=== PATIENT | female | born 1985 | race African-American/Black ===

== ENCOUNTER 2025-04-30 20:12 | Emergency (ER) | payer OTHER, SELFPAY ==
[2025-04-30 20:19] VITALS: BP 125/70; PULSE 89; TEMP 36.8; O2SAT 100; BMI 28.5
--- NOTE | 2025-04-30 20:29 | ED_ITS ---
HPI - URI/Sore Throat General Chief Complaint: Upper Respiratory Infection Stated Complaint: COUGH,SORE THROAT Time Seen by Provider: 04/30/25 20:21 Source: patient History of Present Illness HPI Narrative: presents complaining of cough for the past month. worse at night. No fever or chest pain or nausea. Describes coughing jags. States she was diagnosed with sarcoid last year. States biopsy was performed in [facility]. No follow up as she moved to this area. Does not have a PCP here Related Data Allergies Allergy/AdvReac Type Severity Reaction Status Date / Time Penicillins Allergy Mild Hives Verified 04/30/25 20:19 Review of Systems ROS Status of ROS 10 or more systems reviewed and unremark able except as noted in history and below PFSH PFSH Social History Little interest or pleasure in doing things: not at all Feeling down, depressed, or hopeless: not at all Exam Constitutional Vital Signs, click to edit/add: Last Vital Signs Temp 98.2 F 04/30/25 20:19 Pulse 87 05/01/25 04:11 Resp 18 05/01/25 04:11 BP 122/74 05/01/25 04:11 Pulse Ox 97 05/01/25 04:11 O2 Del Method Room Air 05/01/25 04:11 Common normals: no apparent distress, average body habitus, oriented x3, no limitations, healthy appearing, alert and well nourished [facility] Common normals: normocephalic and head/scalp atraumatic Eye Common normals: EOMs intact bilaterally and conjunctivae normal Respiratory Common normals: normal respiratory effort Effort & inspection: actively coughing and audible wheezes Auscultation: rhonchi Cardio Common normals: regular rate, regular rhythm, S1 normal heart sound and S2 normal heart sound GI Common normals: Normal to inspection, nondistended, normoactive bowel sounds present, soft to palpation and non-tender Extremity Common normals: normal to inspection and full ROM Neuro Common normals: oriented x3, CN's II-XII intact bilaterally and moves all extremities Psych Appearance: grossly normal Course Vital Signs Vital signs: Vital Signs Temperature 98.2 F 04/30/25 20:19 Pulse Rate 89 04/30/25 20:19 Respiratory Rate 16 04/30/25 20:19 Blood Pressure 125/70 04/30/25 20:19 Pulse Oximetry 100 04/30/25 20:19 Oxygen Delivery Method Room Air 04/30/25 20:19 Temperature 98.2 F 04/30/25 20:19 Pulse Rate 87 05/01/25 04:11 Respiratory Rate 18 05/01/25 04:11 Blood Pressure 122/74 05/01/25 04:11 Pulse Oximetry 97 05/01/25 04:11 Oxygen Delivery Method Room Air 05/01/25 04:11 MDM - URI/Sore Throat MDM Narrative Medical decision making narrative: patient presents complaining of recurrent cough. cough worse at night . Exam with diffuse mild rhonchi and few scattered wheezes. Treated with solumedrol and duoneb and improved nicely. cxray with findings concerning for CA. CT chest with pulmonary nodules concerning for CA. These nodules may or may not be related to her sarcoid. She is advised of the importance of follow up with PCP who can obtain her old records and continue this workup Discharged home with prednisone and albuterol inhaler Lab Data Labs: Lab Results 04/30/25 Range/Units 20:47 WBC 6.2 (4.0-11.0) 10^3/uL RBC 4.67 (4.20-5.40) 10^6/uL Hgb 13.9 (12.0-16.0) g/dL Hct 40.3 (36.0-48.0) % MCV 86.3 (81.0-99.0) fL MCH 29.8 (26.7-34.0) pg MCHC 34.5 (29.9-35.2) g/dL RDW 15.0 (11.0-15.0) % Plt Count 321 (150-450) 10^3/uL MPV 9.4 L (9.5-13.5) fL Neut % (Auto) 55.2 (43.0-75.0) % Lymph % (Auto) 26.5 (20.5-60.0) % Williams % (Auto) 13.3 H (1.7-12.0) % Eos % (Auto) 3.9 (0.9-7.0) % Baso % (Auto) 0.6 (0.2-2.0) % Neut # (Auto) 3.4 (1.4-6.5) 10^3/uL Lymph # (Auto) 1.7 (1.2-3.8) 10^3/uL Williams # (Auto) 0.8 (0.3-0.8) 10^3/uL Eos # (Auto) 0.2 (0.0-0.7) 10^3/uL Baso # (Auto) 0.0 (0.0-0.1) 10^3/uL Abs Immat Gran (auto) 0.03 (0.00-0.03) 10^3/uL Imm/Tot Granulo (auto) 0.5 (0.0-0.5) % Sodium 142 (136-145) mmol/L Potassium 4.0 (3.5-5.1) mmol/L Chloride 104 (98-107) mmol/L Carbon Dioxide 29.9 (21.0-32.0) mmol/L Anion Gap 12.1 BUN 15.0 (7.0-18.0) mg/dL Creatinine 1.04 H (0.55-1.02) mg/dL Est GFR ( Amer) >60 (>=60 mL/min/1.73m^2) Est GFR (Non-Af Amer) 58 L (>=60 mL/min/1.73m^2) BUN/Creatinine Ratio 14.4 Glucose 86 (74-106) mg/dL Calcium 9.3 (8.5-10.1) mg/dL NT-Pro-B Natriuret Pep 66.0 (<=450.0) pg/mL Discharge Plan Discharge Chief Complaint: Upper Respiratory Infection Clinical Impression: Acute bronchospasm, Pulmonary nodule 1 cm or greater in diameter Patient Disposition: Home, Self-Care Print Language: Qatari Instructions: Bronchospasm (ED), Pulmonary Nodules (ED) Additional Instructions: follow up with Dr Bella this week Referrals: Physician,Non-Staff, [Primary Care Provider] - 1 week Discharge Date/Time: 05/01/25 04:29
--- NOTE | 2025-04-30 20:31 | XR_ITS ---
[facility] [id number] Patient Name: THUY TERRAZAS MRN: [id number] date: 1985 Sex: F Assigned Patient Location: ED.MAIN Current Patient Location: ED.MAIN Accession/Order Number: [id number] Exam Date: 04/30/2025 20:56 Report Date: 04/30/2025 21:00 At the request of: DOMINGA FRYE MD Procedure: XR chest 2V Plain film chest 2 view HISTORY: Cough and sore throat. One month duration. Current smoker. COMPARISON: None FINDINGS: SUPPORT DEVICES: None POSTSURGICAL CHANGES: None HEART: Within normal limits PULMONARY SHARONA: Within normal limits MEDIASTINUM: Unremarkable LUNGS AND PLEURA: 17 mm nodular consolidation in the left suprahilar region. 2.2 cm nodular consolidation in the right suprahilar region. BONY STRUCTURES: Intact ADDITIONAL FINDINGS None XR/XR chest 2V IMPRESSION: Regions of nodular consolidation in the suprahilar regions. This may represent infectious or inflammatory etiology. There is major concern for malignant neoplasm. Continued follow-up assessment to ensure resolution recommended. May consider CT of the chest with contrast. Impression dictated by: Dhruv Cabrera M.D. 04/30/2025 9:00 PM Dictation Location: [facility] Electronically authenticated by: [id number] Y Date: 04/30/2025 21:00
--- OUTSIDE RECORDS SUMMARY | 2025-04-30 20:32 | XMS_ITS | Clinical Summary ---
Author Organization [facility] Address [address] [place] [address] Care Team Providers Care Patient Day Coordinator Name Role Phone Eveline Ellsworth [facility] Primary Care Provi reagan Allergies Active Allergy Reactions Criticality Noted Date Comments Banana Anaphylaxis,Hives High 05/04/2022 Clindamycin Hives 04/06/2016 Grape Anaphylaxis,Hives High 05/04/2022 [place] (Prunus Persica) Anaphylaxis,Hives High 2021 Peanut Oil Anaphylaxis,Hives High 05/04/2022 Penicillins Hives 08/18/2010 Deb Oil Anaphylaxis,Hives High 05/04/2022 [place] Anaphylaxis,Hives High 05/04/2022 Medications EPINEPHrine (EPIPEN) 0.3 mg/0.3 mL AtIn 2 Active fluticasone, FLOVENT DISKUS, (Flovent Diskus) 100 mcg/actuation DsDv Inhale 1 (one) puff 2 (two) times a day . 28 each 1 3 Active Additional Information Patient not taking.Reported on 06/01/2024 omeprazole (PRILOSEC) 40 MG capsule Take 1 (one) capsule (40 mg total) by mouth daily for 14 days . 14 capsule 3 Active Additional Information Patient not taking.Reported on 06/01/2024 famotidine (PEPCID) 20 MG tablet Take 1 (one) tablet (20 mg total) by mouth 2 (two) times a day . 60 tablet 2 3 Active Additional Information Patient not taking.Reported on 06/01/2024 montelukast (SINGULAIR) 10 mg tablet Take 1 (one) tablet (10 mg total) by mouth nightly . 30 tablet 11 3 Active Additional Information Patient taking differently:10 mg OralNightly PRN, Indications: maintenance therapy for asthma, Reported on 05/05/2024 albuterol 90 mcg/actuation inhaler Inhale 2 (two) puffs every 4 (four) hours as needed . 6.7 g 2 3 Active Additional Information Patient taking differently:2 puff Inhalation Every 4 hours PRN,Indications: acute asthma attack, Reported on 05/05/2024 acetaminophen (TYLENOL) 500 MG tabletIndicatio ns:Pain Take 1 (one) tablet (500 mg total) by mouth every 6 (six) hours as needed . 30 tablet 3 4 Active predniSONE (DELTASONE) 10 MG tabletIndicatio ns:Sarcoid Take 4 (four) tablets (40 mg total) by mouth daily Take with food, in the morning. Follow dosing instructions from Dr. Watt. . 120 tablet 4 4 Active sulfamethoxazol e-trimethoprim (BACTRIM DS,SEPTRA DS) 800-160 mg per tabletIndicatio ns:Sarcoid 1 tab orally every Wednesday, Wednesday, Wednesday . 15 tablet 4 4 Active Active Problems Problem Noted Date Diagnosed Date Cavitary lung disease 05/03/2024 Mediastinal lymphadenopathy 05/03/2024 Lung nodules 05/03/2024 Asthma 07/16/2022 Multiple food allergies 07/16/2022 Family History Medical History Relation Comments Diabetes Father Hyperlipidemia Father Breast cancer Maternal Grandmother Diabetes Mother Diabetes Paternal Grandfather Relation Status Comments Father Maternal Grandmother Mother Paternal Grandfather Social History Tobacco Use Types Packs/Day Years Used Date Smoking Tobacco: Every Day Cigarettes 1.5 23.4 Started: 2001 Cigars Passive Smoke Exposure: Current Smokeless Tobacco: Never Tobacco Cessation:Ready to Q uit: No; Counseling Given: Yes Comments:She has smoked since age 16 years old. She has smoked 1.5 ppd. She is still smoking but is trying to cut down/ quit Alcohol Use Standard Drinks/Week Comments Yes 0 (1 standard drink = 0.6 oz pur e alcohol) 1 drink each week Humiliation, Afraid, Rape, and Kick questionnair e Answer Date Recorded Within the last year, have y ou been afraid of your partner or ex-partner? No 07/09/2022 Within the last year, have y ou been humiliated or emotionally abused in other ways by your partner or ex-partner? No Within the last year, have y ou been kicked, hit, slapped, or otherwise physically hurt by your partner or ex-partner? No 07/09/2022 Within the last year, have y ou been raped or forced to have any kind of sexual activity by your partner or ex-partner? No 07/09/2022 Social Connection and Isolat ion Panel [NHANES] Answer Date Recorded In a typical week, how many times do you talk on the phone with family, friends, or neighbors? More than three times a week 07/09/2022 How often do you get togethe r with friends or relatives? More than three times a week 07/09/2022 How often do you attend chur or faith services? 1 to 4 times per year 07/09/2022 Do you belong to any clubs o r organizations such as yazidi groups, unions, fraternal or athletic groups, or school groups? No 07/09/2022 How often do you attend meet ings of the clubs or organizations you belong to? Never 07/09/2022 Are you , , di vorced, , never , or living with a partner? Never 07/09/2022 AUDIT-C Answer Date Recorded Q1: How often do you have a drink containing alc ohol? 2-4 times a month 07/09/2022 Q2: How many drinks containi ng alcohol do you have on a typical day when you are drinking? 1 or 2 07/09/2022 Q3: How often do you have si x or more drinks on one occasion? Never 07/09/2022 Overall Financial Resource Strain (CARDIA) Answe r Date Recorded How hard is it for you to pa y for the very basics like food, housing, medical care, and heating? Somewhat hard 07/16/2022 PHQ-2 Answer Date Recorded PHQ-9 Total Score 3 07/16/2022 [facility] [place] [facility] Occupat ional Health - Occupational Stress Questionnaire Answer Date Recorded Do you feel stress - tense, restless, nervous, or anxious, or unable to sleep at night because your mind is troubled all the time - these days? Only a little 07/09/2022 Exercise Vital Sign Answer Date Recorde d On average, how many days pe r week do you engage in moderate to strenuous exercise (like a brisk walk)? 0 days 07/09/2022 On average, how many minutes do you engage in exercise at this level? 0 min 07/09/2022 Hunger Vital Sign Answer Date Recorded Within the past 12 months, y ou worried that your food would run out before you got the money to buy more. Never true 07/16/20 22 Within the past 12 months, t he food you bought just didn't last and you didn't have money to get more. Never true 07/16/2022 PRAPARE - Transportation Answer Date Re corded In the past 12 months, has l ack of transportation kept you from medical appointments or from getting medications? No 06/23 In the past 12 months, has l ack of transportation kept you from meetings, work, or from getting things needed for daily living? No 07/16/2022 Housing Stability Vital Sign Answer Alonso e Recorded In the last 12 months, was t here a time when you were not able to pay the mortgage or rent on time? Yes 07/09/2022 In the last 12 months, how many places have you lived? 1 07/09/2022 In the last 12 months, was t here a time when you did not have a steady place to sleep or slept in a group home (including now)? No 07/09/2022 Comments Unknown Sex and Gender Information Value Date Recorded Sex Assigned at Not on file Legal Sex Female 12:34 PM EDT Gender Identity Female 06/08/2022 2:10 PM EDT Sexual Orientation Straight 07/16/2022 10 :30 AM EDT Sexual Orientation Bisexual 07/16/2022 10 :30 AM EDT Last Filed Vital Signs Vital Sign Reading Time Taken Comments Blood Pressure 116/73 06/01/2024 3:14 PM EDT Pulse 81 06/01/2024 3:14 PM EDT Temperature 36.7 C (98 F) 06/01/2024 3:14 PM EDT Respiratory Rate 16 06/01/2024 3:14 PM EDT Oxygen Saturation 96% 06/01/2024 3:14 PM EDT RA Inhaled Oxygen Concentration - - Weight 68 kg (150 lb) 06/01/2024 3:14 PM EDT Height 162.6 cm (5' 4 ) 06/01/2024 3:14 PM EDT Body Mass Index 25.75 06/01/2024 3:14 PM EDT Plan of Treatment Health Maintenance Due Date Last Done Comments Hepatitis C Screening 2001 Pneumococcal Vaccine: Ped or At-Risk (1 of 2 - PCV) 2002 HPV/Cotest 2013 Depression Screening/Follow- Up (PHQ-2/9) 07/16/2023 07/16/2022 Wellness Visit 08/25/2023 08/25/2022 Mammogram 2023 09/09/2022, 08/22, 08/31/2022 COVID-19 Vaccine ( season) 2024 Influenza Vaccine (Season Ended) 2025 Cervical Cancer Screening 08/25/2025 Pap Smear 08/25/2025 08/25/2022, 11/26/2010 Tetanus: Every 10yrs 09/19/2031 09/19/2021 HIV Screening Completed 08/13/2023, 05/01/2023 Procedures Procedure Name Priority Date/Time Associated Diagnosis Comments MM DIAGNOSTIC PETER BILATERAL Routine 09/09/2022 1:23 PM EDT Abnormal mammography THINPREP PAP SMEAR Routine 08/25/2022 10 :41 AM EDT Malignant neoplasm of cervix, unspecified site (HCC) from Last 3 Months or Most Recently Relevant to Health Maintenance Results * Mammography Diagnostic Peter Bilateral (09/09/2022 1:23 PM EDT) Anatomical Region Laterality Modality Breast Bilateral Mammography 09/09/2022 1:30 PM EDT Impressions 09/09/2022 2:14 PM EDT 1. Persistent mammographic focal asymmetries in each breast likely corresponding to a 1.1 cm mass on the right at 11 o'clock 4 cm from the nipple and a 1.1 cm mass on the left at 11 o'clock 7 cm from the nipple. Additional masses of similar appearance are present in each breast, and all are likely fibroadenomas. Recommend short-term follow-up with targeted sonography in 6 months. 2. Incidental 0.5 cm simple cyst in the left breast at 12 o'clock as above. No dedicated follow-up is recommended. BIRADS: BIRADS - CATEGORY 3 Findings are probably benign. A short interval follow-up is recommended in 6 months. OVERALL ASSESSMENT - PROBABLY BENIGN. A letter of notification will be sent to the patient regarding the results. Workstation ID: [id number] Narrative 09/09/2022 2:14 PM EDT EXAMINATION: DIAGNOSTIC DIGITAL BILATERAL BREASTS MAMMOGRAM WITH TOMOSYNTHESIS; TARGETED ULTRASOUND OF THE BILATERAL BREASTS 09/09/2022 TECHNIQUE: Diagnostic mammography of the bilateral breasts was performed with tomosynthesis. 2D standard and 3D tomosynthesis combination imaging performed through both breasts. Computer aided detection was utilized in the interpretation of this exam.; Targeted ultrasound of the bilateral breasts was performed. VIEWS: Bilateral ML, bilateral spot CC, bilateral spot MLO COMPARISON: 08/31/2022 HISTORY: Asymmetries in each breast at screening. Breast cancer in maternal grandmother. FINDINGS: MAMMOGRAM The breasts are extremely dense, which lowers the sensitivity of mammography. Focal asymmetries persist in each breast with spot compression, seen to be round to oval, low to equal density, circumscribed masses near 12 o'clock at mid depth on the right and near 11 o'clock at posterior depth on the left. No suspicious calcifications nor areas of architectural distortion are seen. ULTRASOUND There are masses as below, including those corresponding with the mammographic findings. No areas of architectural distortion, skin thickening, nor axillary lymphadenopathy are present. - Right breast, 1 o'clock, 6 cm from nipple: 0.6 cm x 0.5 cm x 0.3 cm oval, hypoechoic, circumscribed parallel mass with posterior acoustic enhancement and no vascularity - Right breast, 11 o'clock, 4 cm from nipple: 1.1 cm x 0.9 cm x 0.8 cm oval, hypoechoic, circumscribed parallel mass with posterior acoustic enhancement and no vascularity - Right breast, 11 o'clock, 5 cm from nipple: 1.2 cm x 1.0 cm x 0.6 cm oval, hypoechoic, circumscribed parallel mass with posterior acoustic enhancement and no vascularity - Right breast, 12 o'clock, 1 cm from nipple: 0.7 cm x 0.6 cm x 0.4 cm oval, hypoechoic, circumscribed parallel mass with posterior acoustic enhancement and no vascularity - Left breast, 1 o'clock, 1 cm from nipple: 0.9 cm x 0.9 cm x 0.4 cm oval, hypoechoic, circumscribed parallel mass with posterior acoustic enhancement and no vascularity - Left breast, 11 o'clock, 7 cm from nipple: 1.1 cm x 1.1 cm x 0.5 cm oval, hypoechoic, circumscribed parallel mass with posterior acoustic enhancement and no vascularity - Left breast, 12 o'clock, 2 cm from nipple: 1.0 cm x 0.9 cm x 0.5 cm oval, hypoechoic, circumscribed parallel mass with posterior acoustic enhancement and no vascularity - Left breast, 12 o'clock, 3 cm from nipple: 0.5 cm x 0.4 cm x 0.2 cm simple cyst us Eveline Ellsworth CNP IMG MAMMOGRAPHY ORD ERABLES Final Result * Thinprep Pap Smear (08/25/2022 10:41 AM EDT) Case Report Gynecologic Cytology Report Case: [id number] Authorizing Provider: Eveline Ellsworth, Collected: 08/25/2022 10:41 AM MANJU Ordering Location: [facility] Received: 08/25/2022 03:01 PM Physicians First Screen: Oksana Dia Specimen: THINPREP PAP SMEAR, Cervix / Endocervix 09/10/2022 2:32 PM EDT [facility] Specimen Adequacy Satisfactory for evaluation; endocervical/armstrong sformation zone component absent/insufficie nt 09/10/2022 2:32 PM EDT [facility] Interpretation Negative for intraepithelial lesion or malignancy 09/10/2022 2:32 PM EDT [facility] at 1432 EDT Organisms Shift in rolando suggestive of bacterial vaginosis 09/10/2022 2:32 PM EDT [facility] Educational Note The Pap smear is a screening test for the detection of cervical cancer and its precursor lesions. False positive and false negative results can occur. The test should be performed at regular intervals, and positive results should be confirmed before definitive therapy. Additional testing methods may be helpful in detecting abnormalities or in clinical management. The specimen has been analyzed by the ThinPrep imaging system, an automated imaging and review system which assists the laboratory in evaluating cells on ThinPrep tests. Following automated imaging selected nelson from every slide are reviewed by a blow pit helper. Specimen processing and Primary Screening performed at: [facility] - [address] [place] [id number] 09/10/2022 2:32 PM EDT [facility] LMP unknown 09/10/2022 2:32 PM EDT [facility] Pap, Liquid Based ENDOCERVICAL STRUCTURE / Unknown 08/25/2022 10:41 AM EDT 08/25/2022 3:01 PM EDT Eveline Ellsworth [facility] PATHOLOGY/CYTOLOGY ORDERABLES Final Result [facility] [address] [place] [id number] from Last 3 Months or Most Recently Relevant to Health Maintenance Insurance [employer] Care Teams Patient Day Coordinator Relationship Specialty Start Date End Date Eveline Ellsworth, MANJU [address] [place] [address] PCP - General Nurse Practitioner 08/12/22
--- OUTSIDE RECORDS SUMMARY | 2025-04-30 20:32 | XMS_ITS | Clinical Summary ---
Author Organization [employer] tem Address [id number] [address] [place] [address] Care Team Providers Care Windows Systems Admin Name Role Phone No Pcp, No Pcp Primary Care Provider Unavailabl e Allergies Active Allergy Reactions Criticality Noted Date Comments Penicillins Hives 02/03/2018 Medications ibuprofen (MOTRIN) 600 mg tablet Take 1 tablet (600 mg total) by mouth every 8 (eight) hours as needed for pain. 30 tablet 10/22/2024 Active Social History Tobacco Use Types Packs/Day Years Used Date Smoking Tobacco: Every Day Smokeless Tobacco: Never Alcohol Use Standard Drinks/Week Comments No 0 (1 standard drink = 0.6 oz pur e alcohol) Childcare Answer Date Recorded Childcare Unknown 05/03/2019 Employment Answer Date Recorded Employment Unknown 05/03/2019 Hunger Screening Answer Date Recorded Within the past 12 months we worried whether our food would run out before we got money to buy more. Never True 12/19/2024 Within the past 12 months th e food we bought just didn't last and we didn't have money to get more. Never True 12/19/2024 Purpose - Life Answer Date Recorded Purpose and direction in life Unknown Comments No Sex and Gender Information Value Date Recorded Sex Assigned at Not on file Legal Sex Female 11:40 AM EDT Gender Identity Not on file Sexual Orientation Not on file Last Filed Vital Signs Vital Sign Reading Time Taken Comments Blood Pressure 115/74 12/19/2024 1:57 PM EST Pulse 107 12/19/2024 4:34 PM EST Temperature 37.2 C (98.9 F) 12/19/2024 4:34 PM EST Respiratory Rate 18 12/19/2024 4:34 PM EST Oxygen Saturation 96% 12/19/2024 4:34 PM EST Inhaled Oxygen Concentration - - Weight 71.7 kg (158 lb) 12/19/2024 1:57 PM EST Height 162.6 cm (5' 4 ) 12/19/2024 1:57 PM EST Body Mass Index 27.12 12/19/2024 1:57 PM EST Plan of Treatment Health Maintenance Due Date Last Done Comments Tobacco Counseling 1983 Depression Screening 1995 Adult BMI Follow Up Plan 2001 Influenza Vaccine 07/23/2025 Pap Smear 08/25/2025 08/25/2022, 11/26/2010 Adult BMI Screening 12/19/2025 12/19/2024 Tobacco Screening 12/19/2025 12/19/2024 DTaP,Tdap and Td Vaccines (2 - Td or Tdap) 09/19/2031 09/19/2021 Medical Devices Not on file Care Teams Windows Systems Admin Relationship Specialty Start Date End Date No Pcp, No Pcp AYLA Meza [id number] PCP - General Family Medicine 12/19/24
[2025-04-30 20:53] LABS: Basophils Percent Auto 0.6 % (0.2-2.0); Eosinophils Absolute Auto 0.2 10^3/uL (0.0-0.7); Eosinophils Percent Auto 3.9 % (0.9-7.0); Hematocrit 40.3 % (36.0-48.0); Hemoglobin 13.9 g/dL (12.0-16.0); Immature Granulocytes Abs Auto 0.03 10^3/uL (0.00-0.03); Immature Granulocytes Pct Auto 0.5 % (0.0-0.5); Lymphocytes Absolute Auto 1.7 10^3/uL (1.2-3.8); Lymphocytes Percent Auto 26.5 % (20.5-60.0); Mean Corpuscular HGB Conc 34.5 g/dL (29.9-35.2); Mean Corpuscular Hemoglobin 29.8 pg (26.7-34.0); Mean Corpuscular Volume 86.3 fL (81.0-99.0); Mean Platelet Volume 9.4 fL (9.5-13.5); Monocytes Absolute Auto 0.8 10^3/uL (0.3-0.8); Monocytes Percent Auto 13.3 % (1.7-12.0); Neutrophils Absolute Auto 3.4 10^3/uL (1.4-6.5); Neutrophils Percent Auto 55.2 % (43.0-75.0); Platelet Count 321 10^3/uL (150-450); Red Blood Count 4.67 10^6/uL (4.20-5.40); White Blood Count 6.2 10^3/uL (4.0-11.0)
[2025-04-30] MEDS: METHYLPREDNISOLONE SOD SUCC PF 125 MG/2 ML VIAL IVP (21:10)
[2025-04-30 21:13] LABS: Anion Gap 12.1; BUN Creatinine Ratio 14.4; Calcium 9.3 mg/dL (8.5-10.1); Carbon Dioxide 29.9 mmol/L (21.0-32.0); Chloride 104 mmol/L (98-107); Estimated GFR (African America >60 (>=60 mL/min/1.73m^2); Estimated GFR (Non-African Ame 58 (>=60 mL/min/1.73m^2); Glucose 86 mg/dL (74-106); Sodium 142 mmol/L (136-145)
[2025-04-30 21:14] VITALS: PULSE 93; O2SAT 97
[2025-04-30] MEDS: IPRATROPIUM/ALBUTEROL SULFATE 3 ML AMPUL.NEB IH (21:14)
[2025-05-01 04:11] VITALS: BP 122/74; PULSE 87; O2SAT 97
== END 2025-05-01 04:29 | disposition home or self-care (01) ==
PROVIDERS: Emergency Provider Internal Medicine
DX: J98.01 Acute bronchospasm (principal); R91.8 Other nonspecific abnormal finding of lung field
CPT/HCPCS: 36415; 71046; 71260; 80048; 83880; 85025; 94640; 99285; J2919; Q9967